=== PATIENT | female | born 1975 | race African-American/Black ===

== ENCOUNTER 2019-05-05 11:46 | Emergency (ER) | payer OTHER ==
[2019-05-05] MEDS ORDERED: DIPHENHYDRAMINE HCL 50 MG/ML VIAL IV ONE (12:04)
[2019-05-05] MEDS ORDERED: METHYLPREDNISOLONE INJ 125 MG/2 ML SDV IV ONE (12:04)
[2019-05-05] MEDS ORDERED: FAMOTIDINE INJ/PF 20 MG/2 ML SDV IV ONE (12:04)
[2019-05-05] MEDS ORDERED: KETOROLAC TROMETHAMINE INJ/PF 30 MG/1 ML SDV IV ONE (12:05)
--- NOTE | 2019-05-05 12:07 | ER Document Report ---
ED Medical Screen (RME) - General Stated Complaint: SWOLLEN LIP Time Seen by Provider: 05/05/19 12:04 Notes: Healthy 44-year-old female presents the emergency department with an allergic reaction. Patient states about 2 hours ago her lips started swelling. She states that shortly afterwards she "all of a sudden had a really hard time breathing". She denies a scratching sensation in her throat, denies any tongue swelling, denies any acute wheezing, denies nausea or vomiting, denies any rash. Patient does not take any medications and she works at a daycare facility no changes in her daily habits, detergents, make-up, foods. Exam: Well-appearing in no acute distress, edema of the upper lip worse on the right and her left lower lip, no tongue swelling, able to visualize the oropharynx and it is clear, no stridor heard, lungs are clear to auscultation in all choe I have greeted and performed a rapid initial assessment of this patient. A comprehensive ED assessment and evaluation of the patient, analysis of test results and completion of medical decision making process will be conducted by an additional ED providers. TRAVEL OUTSIDE OF THE [place] IN LAST 30 DAYS: No - Related Data Allergies/Adverse Reactions: No Known Allergies Allergy (Unverified 07/08/11 12:05) Past Medical History Pulmonary Medical History: Reports: Hx Asthma Skin Medical History: Denies Hx MRSA Past Surgical History: Reports: Hx Section - Immunizations Immunizations up to date: Yes Hx Diphtheria, Pertussis, Tetanus Vaccination: Yes Physical Exam - Vital signs Vitals: Temp Pulse Resp BP Pulse Ox 98.2 F 68 20 125/89 H 99 05/05/19 11:50 05/05/19 11:50 05/05/19 11:50 05/05/19 11:50 05/05/19 11:50 Course - Vital Signs Vital signs: Temp Pulse Resp BP Pulse Ox 98.2 F 68 20 125/89 H 99 05/05/19 11:50 05/05/19 11:50 05/05/19 11:50 05/05/19 11:50 05/05/19 11:50
[2019-05-05] MEDS ORDERED: EPINEPHRINE INJ/PF 1 MG/1 ML AMPULE IM ONE (15:27)
--- NOTE | 2019-05-05 15:29 | ER Document Report ---
ED Allergic Reaction - General Chief Complaint: Lip Swelling Stated Complaint: SWOLLEN LIP Time Seen by Provider: 05/05/19 12:04 Primary Care Provider: MELODIE SAMUEL MD [ACTIVE STAFF] - Follow up in 3-5 days Mode of Arrival: Ambulatory Information source: Patient Notes: Patient presents complaining of swelling to the right upper lip area. Patient states swelling started around 9 AM today. Patient states initially she had some difficulty breathing although this is since resolved. Patient states since her arrival here she has had some swelling to the left lower lip area. Since receiving the medications in triage she has not had any additional swelling. Patient states that the swelling to the facial area seems to have improved since she was given medications. Patient states that 4 days ago she had hives to the face that resolved. Patient states 3 days ago she had lip swelling across the entire upper lip but none since then. Patient denies any new foods medications or detergents. Patient denies any history of hypertension or use of ARIEL inhibitors. Patient denies any family history of angioedema. TRAVEL OUTSIDE OF THE [place] IN LAST 30 DAYS: No - HPI Onset: Other - 5 days Onset/Duration: Waxing and waning Quality of pain: No pain Medication Exposure: Aspirin Skin rash / itching: Facial, "Hives" Swelling: Face, Lip(s) Associated symptoms: None Similar symptoms previously: No Recently seen / treated by doctor: No - Related Data Allergies/Adverse Reactions: No Known Allergies Allergy (Verified 05/05/19 12:19) Past Medical History - General Information source: Patient - Social History Smoking Status: Never Smoker Frequency of alcohol use: None Drug Abuse: None Occupation: Childcare Family History: Arthritis, CAD, Hyperlipidemia, Hypertension Patient has suicidal ideation: No Patient has homicidal ideation: No Pulmonary Medical History: Reports: Hx Asthma Skin Medical History: Denies Hx MRSA Past Surgical History: Reports: Hx Section - Immunizations Immunizations up to date: Yes Hx Diphtheria, Pertussis, Tetanus Vaccination: Yes Review of Systems - Review of Systems Constitutional: No symptoms reported EENT: Other - Lip swelling. denies: Throat pain Cardiovascular: No symptoms reported Respiratory: No symptoms reported. denies: Cough, Short of breath Gastrointestinal: No symptoms reported. denies: Nausea, Vomiting Genitourinary: No symptoms reported Female Genitourinary: No symptoms reported Musculoskeletal: No symptoms reported Skin: Rash - Facial hives 4 days ago Hematologic/Lymphatic: No symptoms reported Neurological/Psychological: No symptoms reported Physical Exam - Vital signs Vitals: Temp Pulse Resp BP Pulse Ox 98.2 F 68 20 125/89 H 99 05/05/19 11:50 05/05/19 11:50 05/05/19 11:50 05/05/19 11:50 05/05/19 11:50 - General General appearance: Appears well, Alert In distress: None - HEENT Head: Normocephalic, Atraumatic Eyes: Normal Conjunctiva: Normal Nasal: Normal Mouth/Lips: Normal Mucous membranes: Normal Pharynx: Other - lip swelling to the lateral aspect of the right upper lip area and left lower lip area. No: Tonsillar hypertrophy, Uvular edema, Potential airway comprom. Neck: Normal, Supple. No: Lymphadenopathy - Respiratory Respiratory status: No respiratory distress Chest status: Nontender Breath sounds: Normal. No: Rales, Rhonchi, Stridor, Wheezing Chest palpation: Normal - Cardiovascular Rhythm: Regular Heart sounds: S1 appreciated, S2 appreciated - Back Back: Normal - Extremities General upper extremity: Normal inspection, Normal ROM General lower extremity: Normal inspection, Normal ROM - Neurological Neuro grossly intact: Yes Cognition: Normal Estrada Coma Scale Eye Opening: Spontaneous [place] Coma Scale Verbal: Oriented Estrada Coma Scale Motor: Obeys Commands [place] Coma Scale Total: 15 - Psychological Associated symptoms: Normal affect, Normal mood - Skin Skin Temperature: Warm Skin Moisture: Dry Skin Color: Normal Course - Re-evaluation Re-evalutation: 05/05/19 18:[address] Parada who did go to the bedside and evaluate patient. Suspects that patient is likely having angioedema secondary to NSAID use as patient reports recently using a BC powder. Recommends giving patient prescriptions for steroids as well as EpiPen and encouraging outpatient follow- up with herpetologist. Patient has been observed for 6 hours without any worsening of her symptoms. Patient reports improvement of swelling to the right maxillary area. Good return precautions discussed with patient. Patient without any potential airway compromise at this time and is stable for discharge. - Vital Signs Vital signs: Temp Pulse Resp BP Pulse Ox 99.6 F 68 20 126/76 H 100 05/05/19 18:25 05/05/19 11:50 05/05/19 18:01 05/05/19 18:01 05/05/19 18:01 Discharge - Discharge Clinical Impression: angioedema due to nsaid use Condition: Stable Disposition: HOME, SELF-CARE Instructions: Angioedema ([facility]), Use of Diphenhydramine, Epinephrine, Steroid Medication Additional Instructions: Return immediately for any new or worsening symptoms, increased swelling, difficulty breathing or difficulty swallowing. Call 911 if symptoms are severe. Followup with your primary care provider, call tomorrow to make a followup appointment Follow-up with an herpetologist for additional testing. Take Benadryl [id number] to help with symptoms. Prescriptions: Prednisone [Deltasone 20 mg Tablet] 3 tab PO DAILY 5 Days tablet Epinephrine [Epipen 2-Oli] 0.3 mg IM ASDIR PRN #1 unit PRN Reason: Famotidine [Pepcid 20 mg Tablet] 20 mg PO BID #12 tablet Referrals: MELODIE SAMUEL MD [ACTIVE STAFF] - Follow up in 3-5 days
[2019-05-05 18:17] VITALS: BP 126/76
== END 2019-05-05 18:29 | disposition home or self-care (01) ==
LOC: ER 11:46
DX: T78.3XXA Angioneurotic edema, initial encounter (principal); T39.395A Adverse effect of other nonsteroidal anti-inflammatory drugs [NSAID], initial encounter; J45.909 Unspecified asthma, uncomplicated
CPT/HCPCS: 99283; 96372; 96374; 96375; J1200; J0171; J2930; J1885; S0028

== ENCOUNTER → 2020-01-23 | Outpatient (CLI) | payer OTHER ==
[2020-01-23 11:12] VITALS: BP 143/67
--- NOTE | 2020-01-23 11:12 | ER RDC ASSESSMENT REPORT ---
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 [employer] - Symptoms Subjective Fever([place] feverish): No Chills: No Muscule Aches: No Runny Nose: Yes Sore Throat: No Cough (New or worsening chronic cough): No Shortness of breath: No Nausea or Vomiting: Yes Headache: No Abdominal Pain: No Diarrhea(3 or more loose stools in last 24 hours): No - Do you have any of the following Chronic lung disease: Asthma or emphysema or COPD: Yes Chronic Lung Disease Comment: History of asthma Cystic Fibrosis: No Diabetes: No High Blood Pressure: No Cardiovascular Disease: No Chronic Kidney Disease: No Chronic Liver Disease: No Chronic blood disorder like Sickle Cell Disease: No Weak immune system due to disease or medication: No Neurologic condition that limits movement: Yes Neurological Condition Comment: History of vertigo last episode on Wednesday Developmental delay - Moderate to Severe: No Recent (within past 2 weeks) or current : No Morbid Obesity (>100 pounds over ideal weight): No - Objective Temperature: 98.2 F Pulse Rate: 77 Respiratory Rate: 20 Blood Pressure: 143/67 O2 Sat by Pulse Oximetry: 98 Objective: Given above, testing performed: If Testing Performed: Test Specimen Type Sent to General - General Information source: Patient Notes: Here today at [facility] for COVID testing has a history of vertigo and on Wednesday had an episode along with nausea and vomiting January 18 patient also works at the [employer] and 1 of the children had tested positive last week. She has a history of asthma but is not having any upper respiratory symptoms at this time. - Related Data Allergies/Adverse Reactions: No Known Allergies Allergy (Verified 05/05/19 12:19) Past Medical History - General Information source: Patient - Social History Smoking Status: Never Smoker Family History: Arthritis, CAD, Hyperlipidemia, Hypertension Pulmonary Medical History: Reports: Hx Asthma Skin Medical History: Denies Hx MRSA Past Surgical History: Reports: Hx Section Physical Exam - General General appearance: Appears well, Alert In distress: None Notes: PHYSICAL EXAMINATION: GENERAL: Well-appearing and in no acute distress. HEAD: Atraumatic, normocephalic. EYES: sclera anicteric, conjunctiva are normal. ENT: nares patent. Moist mucous membranes. NECK: Normal range of motion, supple without lymphadenopathy LUNGS: CTAB and equal. No wheezes rales or rhonchi. Resp even and unlabored. Lung sounds clear. HEART: Regular rate and rhythm without murmurs ABDOMEN: Soft, nontender, normal bowel sounds, no guarding. EXTREMITIES: No cyanosis. NEUROLOGICAL: Normal speech. PSYCH: Normal mood, normal affect. SKIN: Warm, Dry, normal turgor, Diagnostic Results Laboratory Results: Patient informed of negative rapid strep and negative rapid flu results. Pending strep culture pending cover testing results. Provided instructions regarding COVID to include: As a person under investigation for Covid 19, the [facility] of Health and Human Services, division of public health advises you to adhere to the following guidance until your test results are reported to you. If your test result is positive, you will receive additional information from your provider and your local health department at that time. Remain at home until you are cleared by the health provider or public health authorities. Keep a log of visitors to your home, notify any visitors to your home of your isolation status. If you plan to move to a new address or leave the county, notify the local health department in your County. Call your doctor or seek care if you have an urgent medical need. Before seeking medical care, call ahead to get instructions from the provider before arriving at the medical office clinic or hospital. Notify them that you are being tested for the virus that causes Covid 19 so that arrangements can be made, as necessary, to prevent transmission to others in the healthcare setting. Next, notify the local health department in your county. If a medical emergency arises and you need to call 911, inform the first responders that you are being tested for the virus that causes Covid 19. Next, notify the local health department in your county. Patient Education/Counseling Counseling/Education: Patient presents with upper respiratory symptoms worrisome for possible Covid 19. Patient does not have emergency worring symptoms such as difficulty breathing, shortness of breath, chest pain, pressure, confusion or cyanosis. Patient appears suitable for discharge. Patient instructed to follow-up with primary care. To ED for persistent or worsening symptoms. Patient's vital sign s are stable and patient is nontoxic in appearance. Good return precautions have been discussed with patient, patient verbalized understanding and is agreeable with discharge plan of care at this time. RDC Discharge - Discharge Clinical Impression: COVID - 19 SCREENING Condition: Stable Disposition: Home; Selfcare
[2020-01-23 11:52] LABS: A TYPE INFLUENZA AG NEGATIVE (NEGATIVE)
[2020-01-23 11:53] LABS: B INFLUENZA AG NEGATIVE (NEGATIVE)
== END ==
LOC: RDC 10:00
PROVIDERS: ATTEND Nurse Practitioner Family
DX: Z20.828 Contact with and (suspected) exposure to other viral communicable diseases (principal); R09.89 Other specified symptoms and signs involving the circulatory and respiratory systems; R11.2 Nausea with vomiting, unspecified; J45.909 Unspecified asthma, uncomplicated
CPT/HCPCS: 87070; 87880; 87635; 87804; 99201; 99211; C9803

== ENCOUNTER 2020-04-01 13:28 | Emergency (ER) | payer SELFPAY ==
[2020-04-01] MEDS ORDERED: IPRATROPIUM/ALBUTEROL 0.5-2.5 MG/3 ML AMPUL NEB ONE (14:26)
[2020-04-01] MEDS ORDERED: DEXAMETHASONE SOD PHOS INJ 10 MG/1 ML VIAL IM ONE (14:26)
--- NOTE | 2020-04-01 14:30 | ER Document Report ---
ED General - General Chief Complaint: Breathing Difficulty Stated Complaint: DIFFICULTY BREATHING/FEVER Time Seen by Provider: 04/01/20 14:15 Mode of Arrival: Ambulatory Information source: Patient Notes: Patient is a 45-year-old -[place] female with history of asthma presenting today with shortness of breath worse than baseline. She found out today from the health department that she is positive for the coronavirus. She does not have any of the other typical coronavirus symptoms. She is concerned because she gets winded more easily and is requiring more often dosing of her as thma medication. TRAVEL OUTSIDE OF THE [place] IN LAST 30 DAYS: No - Related Data Allergies/Adverse Reactions: No Known Allergies Allergy (Verified 05/05/19 12:19) Past Medical History - General Information source: Patient - Social History Smoking Status: Never Smoker Family History: Arthritis, CAD, Hyperlipidemia, Hypertension Pulmonary Medical History: Reports: Hx Asthma Skin Medical History: Denies Hx MRSA Past Surgical History: Reports: Hx Section - Immunizations Immunizations up to date: Yes Hx Diphtheria, Pertussis, Tetanus Vaccination: Yes Review of Systems - Review of Systems Notes: Constitutional: No fevers. No chills. EENT: No eye redness. No eye pain. No ear pain. No sore throat. Cardiovascular: No chest pain. No palpitations. Respiratory: + cough and shortness of breath. No respiratory distress. Gastrointestinal: No abdominal pain. No nausea, vomiting, or diarrhea. Genitourinary: Atraumatic. No lesions. No pain. No discharge. Musculoskeletal: Atraumatic. No swelling. No deformities. Skin: No rash or lesions. Lymphatic: No swollen lymph nodes. Neurologic: No headache. No syncope. Psychiatric: No suicidal or homicidal ideation. Physical Exam - Vital signs Vitals: Temp Pulse Resp BP Pulse Ox 98.5 F 80 20 145/63 H 100 04/01/20 13:36 04/01/20 13:36 04/01/20 13:36 04/01/20 13:36 04/01/20 13:36 - Notes Notes: General: Well-developed, well-nourished. In no acute distress. Non-toxic appearing. Cardiac: Well-perfused. Regular rate and rhythm. No murmurs, rubs, or gallops. Pulmonary: No respiratory distress. No cyanosis. Diminished breath sounds bilaterally Abdominal: Non-distended. Non-rigid. Bowels sounds are present in all four quadrants. No guarding or rebound. HEENT: Head is atraumatic. Conjunctivae not reddened. No tearing. PERRL. EOMI. Orbits atraumatic. No periorbital swelling or erythema. Oropharynx is without erythema, swelling, or exudates. Neck: Supple. No adenopathy. No meningismus. Dermatologic: Warm with good turgor. No rash. Atraumatic. Chest: Atraumatic. No chest wall tenderness to palpation. Musculoskeletal: Moves all extremities well. No range of motion deficits. no muscular or joint tenderness. No paraspinal muscle tenderness. no midline spinal tenderness or step-off. Genitourinary: Examination deferred Neurologic: No gross neurologic deficits. Psychiatric: Normal mood. Course - Re-evaluation Re-evalutation: 04/01/20 14:30 We will get a chest x-ray to see if the patient is developing any signs of pneumonia. Dexamethasone IM here. DuoNeb treatment here. 04/01/20 15:27 Feeling better after DuoNeb treatment. X-ray negative for pneumonia. Will discharge patient home with dexamethasone 4 mg daily for the next 7 days. Patient also needs a refill on her albuterol metered-dose inhaler. Advised to follow-up with her primary care doctor the next couple of days. Return immediately to the emergency room if breathing significantly worse. - Vital Signs Vital signs: Temp Pulse Resp BP Pulse Ox 98.5 F 80 20 145/63 H 100 04/01/20 13:36 04/01/20 13:36 04/01/20 13:36 04/01/20 13:36 04/01/20 13:36 Discharge - Discharge Clinical Impression: COVID-19 virus infection Asthma exacerbation Qualifiers: Asthma severity: unspecified severity Asthma persistence: unspecified Qualified Code(s): J45.901 - Unspecified asthma with (acute) exacerbation Condition: Good Disposition: HOME, SELF-CARE Instructions: Viral Syndrome ([facility]), Asthma ([facility]) Additional Instructions: Please use your inhaled albuterol 2 puffs every 4 hours as needed for cough or shortness of breath. Dexamethasone tablets start tomorrow 1 a day for the next week. Return to the emergency department at any time if your symptoms get worse. Prescriptions: Albuterol Sulfate [Albuterol Sulfate Hfa] 2 puff IH Q4H PRN #1 [id number] PRN Reason: Dexamethasone [Decadron] 4 mg PO DAILY #7 tablet Forms: Return to Work
--- NOTE | 2020-04-01 15:16 | RADIOLOGY REPORT (SQ) ---
EXAM DESCRIPTION: CHEST SINGLE VIEW IMAGES COMPLETED DATE/TIME: 04/01/2020 3:07 pm REASON FOR STUDY: cough, sob, covid + COMPARISON: None. EXAM PARAMETERS: NUMBER OF VIEWS: One view. TECHNIQUE: Single frontal radiographic view of the chest acquired. RADIATION DOSE: NA LIMITATIONS: None. FINDINGS: LUNGS AND PLEURA: No opacities, masses or pneumothorax. No pleural effusion. MEDIASTINUM AND HILAR STRUCTURES: No masses. Contour normal. HEART AND VASCULAR STRUCTURES: Heart normal in size. Normal vasculature. BONES: No acute findings. HARDWARE: None in the chest. OTHER: No other significant finding. IMPRESSION: NO ACUTE RADIOGRAPHIC FINDING IN THE CHEST. TECHNICAL DOCUMENTATION: JOB ID: [id number] 2010 [employer]- All Rights Reserved Reading location - IP/workstation name: [email or web address]
[2020-04-01 15:50] VITALS: BP 139/65
== END 2020-04-01 15:48 | disposition home or self-care (01) ==
LOC: ER 13:28
DX: U07.1 COVID-19 (principal); J45.901 Unspecified asthma with (acute) exacerbation
CPT/HCPCS: 94640; 99283; 96372; 71045; J1100